=== PATIENT | male | born 1970 | race Caucasian/White ===

== ENCOUNTER 2018-06-22 14:34 | Inpatient (IN) ==
[2018-06-22] MEDS ORDERED: ACETYLCYSTEINE IV.SIG ONE ×4 (22:22→23:00)
[2018-06-22] MEDS ORDERED: DEXTROSE 5% IV.SIG ONE ×4 (22:22→23:00)
[2018-06-22] MEDS ORDERED: WATER IV.SIG ONE ×4 (22:22→23:00)
[2018-06-22] MEDS ORDERED: Bisacodyl 10 MG Supp RECTAL PRN (22:23)
--- NOTE | 2018-06-22 22:31 | P.HPCC ---
History of Present Illness Service: Critical care Primary Care Physician: UNKNOWN Chief Complaint: Tylenol overdose History of Present Illness: Patient is 48-year-old male with no significant past medical history, who attempted to kill himself by taking 25 tablets of Tylenol 500 mg, large amount of Advil and Midol(contains Tylenol). As per patient he took about 100 tablets total. He was taken to the [facility] emergency department. Further evaluation showed a Tylenol level of 110.5, salicylate level was normal his ABG showed a pH of 7.63 PCO2 13, base excess was -7. Poison control was contacted and patient was started on IV Mucomyst per protocol for Tylenol toxicity. I evaluated the patient in the ICU. He states that he feels depressed because he is going through a divorce. He had lost approximately 60 pounds due to stress in the last 2 months. While he was 15 his father killed himself and at that time he had attempted to commit suicide. He has no other medical problems - Diagnosis (1) Tylenol overdose (2) Acute respiratory alkalosis (3) Suicide attempt by acetaminophen overdose Inpatient Certification: I certify that the inpatient services were ordered in accordance with Medicare regulations governing the order. This includes certification that hospital inpatient services are reasonable and necessary and in the case of services not specified as inpatient-only under 42 CFR 419.22(n), that they are appropriately provided as inpatient services in accordance to with the 2-midnight benchmark under 43 CFR 412.3(e) Estimated Total Length of Stay (Days): 5 Plans for Post Hospital Care: Not yet determined Review of Systems All other systems reviewed negative except as stated in HPI [facility] - History History Provided By: Patient - Medical History Medical History: Medical History (Last Updated 06/22/18 @ 22:45 by Mary Pete MD) Depression Patient denies medical problems - Surgical History Surgical History: Surgical History (Last Updated 06/22/18 @ 14:43 by Nita Mack RN) Hx of tonsillectomy - Tobacco History Second Hand Smoke Exposure: Yes Tobacco Use In Past 30 Days: Yes Smoking Status: Current every day smoker Tobacco Type: E-Cigarettes - Alcohol History How Often Do You Have a Drink Containing Alcohol: 2 to 3 times a week - Substance Use History Substance History: No History of Abuse Medications and Allergies Active Medications: Active Medications Al Hydroxide/Mg Hydroxide (Milk Of [place] Liq) 30 ml PO Q12H PRN PRN Reason: Mild Constipation Albuterol (Duoneb Neb (Prn)) 1 ampul NEB Q2HR NEB PRN PRN Reason: WHEEZING Bisacodyl (Dulcolax Supp) 10 mg RECTAL DAILY PRN PRN Reason: SEVERE CONSITIPATION Chlorhexidine Gluconate (Chlorhexidine 2% Cloth) 3 pack TOPICAL DAILY@0400 B[facility]AL Stop: 06/28/18 03:59 Chlorhexidine Gluconate (Chlorhexidine 2% Cloth) 3 pack TOPICAL DAILY@0400 PRN PRN Reason: Extra cloth needed Stop: 06/28/18 03:59 Famotidine (Pepcid Pf Inj) 20 mg IV.PUSH Q12HR [facility] Acetylcysteine 15,000 mg/ (Dextrose) 275 mls @ 275 mls/hr IV.SIG ONCE ONE Stop: 06/22/18 22:23 Acetylcysteine 5,000 mg/ (Dextrose) 525 mls @ 131.25 mls/hr IV.SIG ONCE ONE Stop: 06/22/18 22:23 Acetylcysteine 10,000 mg/ (Dextrose) 1,050 mls @ 65.625 mls/hr IV.SIG ONCE ONE Stop: 06/22/18 22:23 Sodium Chloride (Ns Inj) 1,000 mls @ 84 mls/hr IV.CONT .[id number] [facility] Lactulose (Lactulose Liq) 30 ml PO DAILY PRN PRN Reason: SEVERE CONSITIPATION Senna/Docusate Sodium (Kady-Colace) 1 tab PO BID [facility] Sennosides (Senokot) 17.2 mg PO Q12H PRN PRN Reason: Moderate Constipation Sodium Chloride (Ns Flush) 2 ml IV.FLUSH BID B[facility] Sodium Chloride (Ns Flush) 2 ml IV.FLUSH PRN PRN PRN Reason: FLUSH AFTER USING IV ACCESS Allergies Allergy/AdvReac Type Severity Reaction Status Date / Time Penicillins Allergy Itching Verified 06/22/18 14:39 Home Medications Medication Instructions Recorded Confirmed Type No Known Home Medications 06/22/18 06/22/18 History Exam Vital signs: Intake & Output 06/22/18 06/22/18 06/23/18 06:59 18:59 06:59 Weight 105 kg Other: Weight On Admission 105 kg Narrative: GENERAL: 48-year-old male, lying in bed appears depressed SKIN: warm/dry. HEAD: Atraumatic. Normocephalic. EYES: Pupils equal and round. No scleral icterus. ENT: No nasal bleeding or discharge. Mucous membranes moist. NECK: Trachea midline. No JVD. CARDIOVASCULAR: Regular rate and rhythm. No murmur appreciated. RESPIRATORY: No accessory muscle use. Clear to auscultation. Breath sounds equal bilaterally. GASTROINTESTINAL: Abdomen soft, non-tender, nondistended. Hepatic and splenic margins not palpable. MUSCULOSKELETAL: No obvious deformities. No clubbing. No edema. NEUROLOGICAL: Awake and alert. No obvious cranial nerve deficits. Motor grossly within normal limits. Normal speech. PSYCHIATRIC: Depressed mood Septic Shock Reassessment Septic shock perfusion: reassessment completed Caprini VTE Risk Assessment Caprini VTE Risk Assessment: No/Low Risk (score <= 1) Caprini Risk Assessment Model: Point Value = 1 Point Value = 2 Point Value = 3 Point Value = 5 Age 41-60 Minor surgery BMI > 25 kg/m2 Swollen legs Varicose veins or History of unexplained or recurrent spontaneous Oral contraceptives or hormone replacement Sepsis (< 1 month) Serious lung disease, including pneumonia (< 1 month) Abnormal pulmonary function Acute myocardial infarction Congestive heart failure (< 1 month) History of inflammatory bowel disease Medical patient at bed rest Age 61-74 Arthroscopic surgery Major open surgery (> 45 min) Laparoscopic surgery (> 45 min) Malignancy Confined to bed (> 72 hours) Immobilizing plaster cast Central venous access Age >= 75 History of VTE Family history of VTE Factor V Leiden Prothrombin [id number] Lupus anticoagulant Anticardiolipin antibodies Elevated serum homocysteine Heparin-induced thrombocytopenia Other congenital or acquired thrombophilia Stroke (< 1 month) Elective arthroplasty Hip, pelvis, or leg fracture Acute spinal cord injury (< 1 month) Prophylaxis Regimen: Total Risk Factor Score Risk Level Prophylaxis Regimen 0-1 Low Early ambulation 2 Moderate Order ONE of the following: *Sequential Compression Device (SCD) *Heparin 5000 units SQ BID 3-4 Higher Order ONE of the following medications: *Heparin 5000 units SQ TID *Enoxaparin/Lovenox 40 mg SQ daily (WT < 150 kg, CrCl > 30 mL/min) *Enoxaparin/Lovenox 30 mg SQ daily (WT < 150 kg, CrCl > 10-29 mL/min) *Enoxaparin/Lovenox 30 mg SQ BID (WT < 150 kg, CrCl > 30 mL/min) AND/OR *Sequential Compression Device (SCD) 5 or more Highest Order ONE of the following medications: *Heparin 5000 units SQ TID (Preferred with Epidurals) *Enoxaparin/Lovenox 40 mg SQ daily (WT < 150 kg, CrCl > 30 mL/min) *Enoxaparin/Lovenox 30 mg SQ daily (WT < 150 kg, CrCl > 10-29 mL/min) *Enoxaparin/Lovenox 30 mg SQ BID (WT < 150 kg, CrCl > 30 mL/min) AND *Sequential Compression Device (SCD) Assessment and Plan - Problem List (1) Tylenol overdose Code(s): T39.1X1A - Poisoning by 4-Aminophenol derivatives, accidental ( unintentional), initial encounter Status: Acute (2) Acute respiratory alkalosis Code(s): E87.3 - Alkalosis Status: Acute (3) Suicide attempt by acetaminophen overdose Code(s): T39.1X2A - Poisoning by 4-Aminophenol derivatives, intentional self- harm, initial encounter Status: Acute - Assessment and Plan Plan: NEURO: Suicide attempt Tylenol overdose Major depression -IV N-acetylcysteine for Tylenol overdose per protocol -Repeat Tylenol, salicylate level -Poison control had been contacted -Psych consult in a.m. RESP: Acute respiratory alkalosis Minimal left basilar effusion on chest x-ray -Respiratory alkalosis most likely from anxiety -Salicylate level was normal will repeat -Also repeat ABG CV: -Normal saline IV fluids 84 mL/h GI: -N.p.o., IV famotidine -Clear liquid diet if stable -Check ammonia level : -Monitor renal function closely. ID: -No indication for antibiotics at this time HEME: -Monitor CBC, coags ENDO: -Electrolyte replacement per protocol, if needed PROPH: -Bilateral lower extremity SCDs. IV famotidine -Avoid chemical DVT prophylaxis at this time due to Tylenol toxicity LINES: -Utilize peripheral IVs, central line if needed Level 3 New admit Hospitalist consulted to assume care in a.m. Code Status: Full H&P: Quality - VTE Deep Vein Thrombosis/Pulmonary Embolism Present on Admission: No
[2018-06-22 23:08] LABS: ABG Base Excess -3.5 mmol/L (-2-2); ABG PCO2 28 mmHg (38-42); ABG PO2 129 mmHG (61-120)
[2018-06-22] MEDS: Sod Chloride 0.9% Inj 1,000 ML IV.CONT SCH (23:51)
[2018-06-22 23:55] LABS: Acetaminophen 28.3 mcg/mL (10.0-30.0)
[2018-06-22 23:58] LABS: Troponin I 0.11 ng/mL (0.02-0.05)
[2018-06-23] MEDS: Chlorhexidine Gluconate 2% 1 Pack (2 Cloths) TOPICAL SCH (04:00)
[2018-06-23] MEDS ORDERED: Chlorhexidine Gluconate 2% 1 Pack (2 Cloths) TOPICAL PRN (04:00)
[2018-06-23 04:41] LABS: Activated Partial Thrombo Time 25.5 sec (24.3-30.1); INR 1.2 Ratio; Prothrombin Time 12.3 sec (9.8-11.6)
[2018-06-23 09:29] LABS: Troponin I 0.43 ng/mL (0.02-0.05)
[2018-06-23] MEDS: Senna/Docusate Sodium 8.6/50 MG Tablet PO SCH ×2 (09:44→20:44)
[2018-06-23] MEDS: Famotidine PF Inj 20 MG/2 ML Vial IV.PUSH SCH ×2 (09:44→20:44)
[2018-06-23] MEDS: Sod Chloride 0.9% Inj 1,000 ML IV.CONT SCH ×2 (10:51→22:33)
--- NOTE | 2018-06-23 10:52 | P.PNIM ---
Subjective Interval history: The patient said that he spoke with a psychiatrist. He said he is having a lot of family problems right now. He also says that he has had left-sided chest pain for the past few months. He says his stomach feels better. Discussed with nursing. Physical Exam Vital signs: Vital Signs 06/22/18 23:00 06/23/18 00:00 06/23/18 01:00 Temperature 99.0 F Pulse Rate 70 68 69 Respiratory Rate 21 21 23 Blood Pressure 153/82 H 159/97 H 165/86 H Pulse Oximetry 99 98 99 06/23/18 02:00 06/23/18 03:00 06/23/18 04:00 Temperature Pulse Rate 62 65 59 L Respiratory Rate 20 21 19 Blood Pressure 165/79 H 180/102 H 177/94 H Pulse Oximetry 99 99 99 06/23/18 05:00 06/23/18 06:00 06/23/18 07:00 Temperature 99.2 F Pulse Rate 67 57 L 90 Respiratory Rate 20 27 H 23 Blood Pressure 123/68 159/77 H 154/75 H Pulse Oximetry 98 96 97 06/23/18 08:00 06/23/18 09:00 06/23/18 10:00 Temperature 98.0 F Pulse Rate 77 75 75 Respiratory Rate 27 H 23 Blood Pressure 177/92 H 167/90 H Pulse Oximetry 99 99 Intake & Output 06/22/18 06/23/18 06/23/18 18:59 06:59 18:59 Output Total 350 / 350 Balance -350 / -350 Weight 105.5 kg Output: Urine 350 / 350 Other: # Bowel Movements 0 Weight On Admission 105 kg Narrative: GENERAL: No distress. SKIN: warm/dry. HEAD: Atraumatic. Normocephalic. EYES: Pupils equal and round. No scleral icterus. ENT: No nasal bleeding or discharge. Mucous membranes moist. NECK: Trachea midline. No JVD. CARDIOVASCULAR: Regular rate and rhythm. No murmur appreciated. RESPIRATORY: No accessory muscle use. Clear to auscultation. Breath sounds equal bilaterally. GASTROINTESTINAL: Abdomen soft, non-tender, nondistended. Hepatic and splenic margins not palpable. MUSCULOSKELETAL: No obvious deformities. No clubbing. No edema. NEUROLOGICAL: Awake and alert. No obvious cranial nerve deficits. Motor grossly within normal limits. Normal speech. PSYCHIATRIC: Flat affect. Results - Labs Laboratory Results - last 24 hr 06/22/18 06/22/18 06/22/18 22:10 22:50 23:20 PT INR APTT Puncture Site Right radial Patient Temperature 98.6 O2 Saturation 96 ABG pH 7.46 H ABG pCO2 28 L ABG pO2 129 H ABG HCO3 20 L ABG O2 Content 22.1 H ABG Base Excess -3.5 L ABG Methemoglobin 1.4 Hernandez Test Present Hemoglobin 16.3 H Carboxyhemoglobin 1.5 O2 Delivery Device Room air Critical Value No Lactic Acid Ammonia Less than 10 L Troponin I Nasal Screen MRSA (PCR) Not detected Salicylates Acetaminophen 06/22/18 06/22/18 06/23/18 23:20 23:20 03:58 PT 12.3 H INR 1.2 APTT 25.5 Puncture Site Patient Temperature O2 Saturation ABG pH ABG pCO2 ABG pO2 ABG HCO3 ABG O2 Content ABG Base Excess ABG Methemoglobin Hernandez Test Hemoglobin Carboxyhemoglobin O2 Delivery Device Critical Value Lactic Acid Ammonia Troponin I 0.11 H Nasal Screen MRSA (PCR) Salicylates Less than 1.7 L Acetaminophen 28.3 06/23/18 06/23/18 06/23/18 03:58 08:44 08:44 PT INR APTT Puncture Site Patient Temperature O2 Saturation ABG pH ABG pCO2 ABG pO2 ABG HCO3 ABG O2 Content ABG Base Excess ABG Methemoglobin Hernandez Test Hemoglobin Carboxyhemoglobin O2 Delivery Device Critical Value Lactic Acid 0.9 Ammonia Troponin I 0.43 H Cancelled Nasal Screen MRSA (PCR) Salicylates Acetaminophen Less than 2.0 L Assessment and Plan - Plan Suicide attempt/Tylenol overdose/Major depression -IV N-acetylcysteine for Tylenol overdose per protocol. -Poison control had been contacted and following. -Psych will take pt once medically stable. NSTEMI Trop elevated. Has left sided chest pain, chronic. EKG without acute ischemic changes. -telemetry. -trend trops. -cardiology consult if trops continues to increase. -repeat EKG. -check lipid profile, A1c. -ASA 325 mg daily. Acute respiratory alkalosis Minimal left basilar effusion on chest x-ray. Respiratory alkalosis most likely from anxiety. -oxygen as needed. PROPH: Bilateral lower extremity SCDs Discharge Planning: Await further cardiac eval
[2018-06-23] MEDS ORDERED: Morphine Sulfate Inj 2 MG/ML Vial IV.PUSH PRN (10:55)
[2018-06-23] MEDS: Aspirin 325 MG Tablet PO SCH (10:56)
--- NOTE | 2018-06-23 14:08 | P.CONPSY ---
Provisional Diagnosis Admission Date: June 22, 2018 22:00 [place] I.: Adjustment disorder with depressed mood vs MDD History of Present Illness Service: CC Primary Care Provider: UNKNOWN Chief Complaint: Tylenol overdose History of Present Illness: The patient is 48-year-old man, domiciled with in [place], father of 3 kids, employed, without no previous psychiatric history, no previous psychiatric hospitalization, but a suicidal attempt at the age of [age] years old by overdose, no significant past medical history, who attempted to kill himself by taking 25 tablets of Tylenol 500 mg, large amount of Advil and Midol(contains Tylenol). As per patient he took about 100 tablets total. He was taken to the [place] emergency department. Further evaluation showed a Tylenol level of 110.5, salicylate level was normal his ABG showed a pH of 7.63 PCO2 13, base excess was -7. Poison control was contacted and patient was started on IV Mucomyst per protocol for Tylenol toxicity. Chart was reviewed. The patient was in the ICU. Patient is calm, cooperative, tearful. The patient explains that he has been experiencing multiple psychosocial stressors, but the most important is problem with his family. Patient reports that in the last weeks he is 21-year-old daughter and 18-year-old daughter have left the house. He has been having multiple arguments with , in the last days he has realized my is not honest with me yesterday she apparently mentioned that she is going to divorce him. The patient felt very distressed by these, depressed, and try to commit suicide by overdose. At this right moment the patient says that he does not know exactly what to think, at some point he was disappointed because he did not , but at the same time he has been thinking that if he is alive is because he is meant to continue his life and fight with his problems. At this moment the patient endorses anhedonia, hopelessness, helplessness, worthlessness, guiltiness, suicidal ideation, but no plan. The patient was able to contract for safety in the hospital. Very tearful, but logical, coherent and relevant. No loosening of associations, no ideas of reference, no paranoia present. He denies homicidal ideation, he denies visual and auditory hallucinations. PPHx: Patient has a suicidal attempt at the age of [age] years old after his father committed suicide, but no hospitalizations, no diagnosis, never been on medication PMHx: No significant medical history Substance Hx: The patient reports occasional use of alcohol Family Hx: His father committed suicide, he had diagnosis of PTSD Social Hx: Patient was born and raised in [place], domiciled with in [place], father of 3 kids, employed, [employer] - History History Provided By: Patient - Medical History Medical History: Medical History (Last Updated 06/22/18 @ 22:45 by Mary Pete MD) Depression Patient denies medical problems - Surgical History Surgical History: Surgical History (Last Updated 06/22/18 @ 14:43 by Nita Mack RN) Hx of tonsillectomy - Tobacco History Second Hand Smoke Exposure: Yes Tobacco Use In Past 30 Days: Yes Smoking Status: Current every day smoker Tobacco Type: E-Cigarettes - Alcohol History How Often Do You Have a Drink Containing Alcohol: 2 to 3 times a week - Substance Use History Substance History: No History of Abuse Medications and Allergies Active Medications: Active Medications Al Hydroxide/Mg Hydroxide (Milk Of [place]) 30 ml PO Q12H PRN PRN Reason: Mild Constipation Albuterol (Duoneb Neb (Prn)) 1 ampul NEB Q2HR NEB PRN PRN Reason: WHEEZING Aspirin (Aspirin) 325 mg PO DAILY [facility] Last Admin: 06/23/18 10:56 Dose: 325 mg Bisacodyl (Dulcolax Supp) 10 mg RECTAL DAILY PRN PRN Reason: SEVERE CONSITIPATION Chlorhexidine Gluconate (Chlorhexidine 2% Cloth) 3 pack TOPICAL DAILY@0400 [facility] Stop: 06/28/18 03:59 Last Admin: 06/23/18 04:00 Dose: 3 pack Chlorhexidine Gluconate (Chlorhexidine 2% Cloth) 3 pack TOPICAL DAILY@0400 PRN PRN Reason: Extra cloth needed Stop: 06/28/18 03:59 Famotidine (Pepcid Pf Inj) 20 mg IV.PUSH Q12HR [facility] Last Admin: 06/23/18 09:44 Dose: 20 mg Acetylcysteine 10,000 mg/ (Dextrose) 1,050 mls @ 65.625 mls/hr IV.SIG ONCE ONE Stop: 06/23/18 14:59 Last Admin: 06/22/18 23:51 Dose: 65.63 mls/hr Sodium Chloride (Ns Inj) 1,000 mls @ 84 mls/hr IV.CONT .[id number] [facility] Last Admin: 06/23/18 10:51 Dose: 84 mls/hr Lactulose (Lactulose Liq) 30 ml PO DAILY PRN PRN Reason: SEVERE CONSITIPATION Morphine Sulfate (Morphine Inj) 2 mg IV.PUSH Q3H PRN PRN Reason: CHEST PAIN Senna/Docusate Sodium (Kady-Colace) 1 tab PO BID [facility] Last Admin: 06/23/18 09:44 Dose: 1 tab Sennosides (Senokot) 17.2 mg PO Q12H PRN PRN Reason: Moderate Constipation Sodium Chloride (Ns Flush) 2 ml IV.FLUSH BID [facility] Last Admin: 06/23/18 09:44 Dose: 2 ml Sodium Chloride (Ns Flush) 2 ml IV.FLUSH PRN PRN PRN Reason: FLUSH AFTER USING IV ACCESS Allergies Allergy/AdvReac Type Severity Reaction Status Date / Time Penicillins Allergy Itching Verified 06/22/18 14:39 Home Medications Medication Instructions Recorded Confirmed Type No Known Home Medications 06/22/18 06/22/18 History Exam Vital signs: Vital Signs 06/22/18 23:00 06/23/18 00:00 06/23/18 01:00 Temperature 99.0 F Pulse Rate 70 68 69 Respiratory Rate 21 21 23 Blood Pressure 153/82 H 159/97 H 165/86 H Pulse Oximetry 99 98 99 06/23/18 02:00 06/23/18 03:00 06/23/18 04:00 Temperature Pulse Rate 62 65 59 L Respiratory Rate 20 21 19 Blood Pressure 165/79 H 180/102 H 177/94 H Pulse Oximetry 99 99 99 06/23/18 05:00 06/23/18 06:00 06/23/18 07:00 Temperature 99.2 F Pulse Rate 67 57 L 90 Respiratory Rate 20 27 H 23 Blood Pressure 123/68 159/77 H 154/75 H Pulse Oximetry 98 96 97 06/23/18 08:00 06/23/18 09:00 06/23/18 10:00 Temperature 98.0 F Pulse Rate 77 75 70 Respiratory Rate 27 H 23 19 Blood Pressure 177/92 H 167/90 H 163/91 H Pulse Oximetry 99 99 98 06/23/18 11:00 06/23/18 12:00 Temperature 98.4 F Pulse Rate 92 H 98 H Respiratory Rate 24 24 Blood Pressure 153/83 H 142/69 H Pulse Oximetry 99 97 Intake & Output 06/22/18 06/23/18 06/23/18 18:59 06:59 18:59 Intake Total 1000 / 1000 Output Total 350 / 350 Balance -350 / -350 1000 / 1000 Weight 105.5 kg Intake: IV 1000 / 1000 NS Inj 1,000 ML @ 84 mls/hr IV. 1000 / 1000 CONT .[id number] [facility] Rx#:[id number] Output: Urine 350 / 350 Other: # Bowel Movements 0 Weight On Admission 105 kg Narrative: No psychomotor agitation or retardation, no EPS, no withdrawal symptoms, no tremors, no stiffness, no catatonia - Constitutional mild distress - Routine HEENT Exam Head: Present: normocephalic, atraumatic Eye: Present: EOMI, PERRL ENT: Present: mucous membranes moist Mental Status Examination Appearance: Appropriate Consciousness: Alert Orientation: x4 Motor Activity: Normal gait Speech: Unremarkable Language: Adequate Fund of Knowledge: Adequate Attention and Concentration: Adequate Memory: Unremarkable Mood: Sad Affect: Sad Thought Process & Associations: Intact Thought Content: Appropriate Hallucination Type: None Delusion Type: None Suicidal Ideation: Yes Suicidal Plan: Yes Suicidal Intention: No Homicidal Ideation: No Homicidal Plan: No Homicidal Intention: No Insight: Poor Judgment: Poor Assessment and Plan - Assessment (1) Acute adjustment disorder Code(s): F43.20 - Adjustment disorder, unspecified Status: Acute - Plan Plan: On psychiatric evaluation today the patient presents depressed, very tearful, reports that he has been fighting with depression in the last days after his notified him that she is planning to divorce. Patient has overdosed with Tylenol in order to commit suicide. He has a psychiatric history of a suicidal attempt at the age of [age] years old, his father committed suicide and had PTSD, at this moment the patient has an elevated risk of danger to himself. He has contracted for safety in the hospital. Remain in one-to-one in the medical floor. No psychotropics onto the patient is medically clear. Transfer to psychiatry once medically clear. Support, motivational psych education provided. Justification for Continued Inpatient Stay: No admission is indicated
--- NOTE | 2018-06-23 14:17 | P.CONCA ---
History of Present Illness Service: cardiology Consult date: 06/23/18 Requesting Physician: Yang Alfred Reason for Consult: elevated troponin, chest pain Primary Care Provider: UNKNOWN Chief Complaint: Tylenol overdose History of Present Illness: This is a 48 yo gentleman with untreated HTN who presented after attempted suicide by overdose. Took Tylenol, Advil and Midol. Has been treated for such and monitored and seems to be stable. He was noted on POC labs to have mild elevation in troponin 0.11, 0.43 and noted mild left sided chest pain this AM briefly, nonradiating, nonpleuritic, nonpositional, no associated dyspnea, palpitation, lightheadedness, diaphoresis. Apparently he is very active and has been exercising for months for greater than 1 hour multiple times per week with significant exertion and has lost over 60lbs intentionally and with family stress. No cardiopulmonary symptoms with exertion. He does note having a long history of similar chest pain, intermittently for a few years now but hasn't had it in a while until this AM. He is not currently treating his HTN as an outpatient. Was on Benicar but stopped as his "physician went out of town and didn't refill his prescription." Currently feels fine with no complaints. ECG today is NSR with anterior TWI that are new from ECG 06/22/2018. Review of Systems All other systems reviewed negative except as stated in HPI PMFSH - History History Provided By: Patient - Medical History Medical History: Medical History (Last Updated 06/22/18 @ 22:45 by Mary Pete MD) Depression Patient denies medical problems - Surgical History Surgical History: Surgical History (Last Updated 06/22/18 @ 14:43 by Nita Mack RN) Hx of tonsillectomy - Tobacco History Second Hand Smoke Exposure: Yes Tobacco Use In Past 30 Days: Yes Smoking Status: Current every day smoker Tobacco Type: E-Cigarettes - Alcohol History How Often Do You Have a Drink Containing Alcohol: 2 to 3 times a week - Substance Use History Substance History: No History of Abuse Medications and Allergies Active Medications: Active Medications Al Hydroxide/Mg Hydroxide (Milk Of Magnalexandria Liq) 30 ml PO Q12H PRN PRN Reason: Mild Constipation Albuterol (Duoneb Neb (Prn)) 1 ampul NEB Q2HR NEB PRN PRN Reason: WHEEZING Amlodipine Besylate (Norvasc) 5 mg PO DAILY COUNT INCLUDES THE [facility] Aspirin (Aspirin) 325 mg PO DAILY COUNT INCLUDES THE [facility] Last Admin: 06/23/18 10:56 Dose: 325 mg Bisacodyl (Dulcolax Supp) 10 mg RECTAL DAILY PRN PRN Reason: SEVERE CONSITIPATION Chlorhexidine Gluconate (Chlorhexidine 2% Cloth) 3 pack TOPICAL DAILY@0400 COUNT INCLUDES THE [facility] Stop: 06/28/18 03:59 Last Admin: 06/23/18 04:00 Dose: 3 pack Chlorhexidine Gluconate (Chlorhexidine 2% Cloth) 3 pack TOPICAL DAILY@0400 PRN PRN Reason: Extra cloth needed Stop: 06/28/18 03:59 Famotidine (Pepcid Pf Inj) 20 mg IV.PUSH Q12HR COUNT INCLUDES THE [facility] Last Admin: 06/23/18 09:44 Dose: 20 mg Acetylcysteine 10,000 mg/ (Dextrose) 1,050 mls @ 65.625 mls/hr IV.SIG ONCE ONE Stop: 06/23/18 14:59 Last Admin: 06/22/18 23:51 Dose: 65.63 mls/hr Sodium Chloride (Ns Inj) 1,000 mls @ 84 mls/hr IV.CONT .[id number] COUNT INCLUDES THE [facility] Last Admin: 06/23/18 10:51 Dose: 84 mls/hr Lactulose (Lactulose Liq) 30 ml PO DAILY PRN PRN Reason: SEVERE CONSITIPATION Morphine Sulfate (Morphine Inj) 2 mg IV.PUSH Q3H PRN PRN Reason: CHEST PAIN Senna/Docusate Sodium (Kady-Colace) 1 tab PO BID COUNT INCLUDES THE [facility] Last Admin: 06/23/18 09:44 Dose: 1 tab Sennosides (Senokot) 17.2 mg PO Q12H PRN PRN Reason: Moderate Constipation Sodium Chloride (Ns Flush) 2 ml IV.FLUSH BID COUNT INCLUDES THE [facility] Last Admin: 06/23/18 09:44 Dose: 2 ml Sodium Chloride (Ns Flush) 2 ml IV.FLUSH PRN PRN PRN Reason: FLUSH AFTER USING IV ACCESS Allergies Allergy/AdvReac Type Severity Reaction Status Date / Time Penicillins Allergy Itching Verified 06/22/18 14:39 Home Medications Medication Instructions Recorded Confirmed Type No Known Home Medications 06/22/18 06/22/18 History Exam Vital signs: Vital Signs 06/22/18 23:00 06/23/18 00:00 06/23/18 01:00 Temperature 99.0 F Pulse Rate 70 68 69 Respiratory Rate 21 21 23 Blood Pressure 153/82 H 159/97 H 165/86 H Pulse Oximetry 99 98 99 06/23/18 02:00 06/23/18 03:00 06/23/18 04:00 Temperature Pulse Rate 62 65 59 L Respiratory Rate 20 21 19 Blood Pressure 165/79 H 180/102 H 177/94 H Pulse Oximetry 99 99 99 06/23/18 05:00 06/23/18 06:00 06/23/18 07:00 Temperature 99.2 F Pulse Rate 67 57 L 90 Respiratory Rate 20 27 H 23 Blood Pressure 123/68 159/77 H 154/75 H Pulse Oximetry 98 96 97 06/23/18 08:00 06/23/18 09:00 06/23/18 10:00 Temperature 98.0 F Pulse Rate 77 75 70 Respiratory Rate 27 H 23 19 Blood Pressure 177/92 H 167/90 H 163/91 H Pulse Oximetry 99 99 98 06/23/18 11:00 06/23/18 12:00 Temperature 98.4 F Pulse Rate 92 H 98 H Respiratory Rate 24 24 Blood Pressure 153/83 H 142/69 H Pulse Oximetry 99 97 Intake & Output 06/22/18 06/23/18 06/23/18 18:59 06:59 18:59 Intake Total 1000 / 1000 Output Total 350 / 350 Balance -350 / -350 1000 / 1000 Weight 105.5 kg Intake: IV 1000 / 1000 NS Inj 1,000 ML @ 84 mls/hr IV. 1000 / 1000 CONT .[id number] COUNT INCLUDES THE [facility] Rx#:[id number] Output: Urine 350 / 350 Other: # Bowel Movements 0 Weight On Admission 105 kg Narrative: GENERAL: comfortable appearing SKIN: Warm and dry. HEAD: Atraumatic. Normocephalic. EYES: Pupils equal and round. No scleral icterus. No injection or drainage. ENT: No nasal bleeding or discharge. Mucous membranes pink and moist. NECK: Trachea midline. No JVD. CARDIOVASCULAR: Regular rate and rhythm. RESPIRATORY: No accessory muscle use. Clear to auscultation. Breath sounds equal bilaterally. GASTROINTESTINAL: Abdomen soft, non-tender, nondistended. Hepatic and splenic margins not palpable. MUSCULOSKELETAL: Extremities without clubbing, cyanosis, or edema. No obvious deformities. NEUROLOGICAL: Awake and alert. No obvious cranial nerve deficits. Motor grossly within normal limits. Normal speech. PSYCHIATRIC: Appropriate mood and affect; insight and judgment normal. Results Cardiac Enzymes 06/22/18 06/23/18 06/23/18 Range/Units 23:20 08:44 08:44 Troponin I 0.11 H 0.43 H Cancelled (0.02-0.05) ng/mL Coagulation 06/23/18 Range/Units 03:58 PT 12.3 H (9.8-11.6) sec APTT 25.5 (24.3-30.1) sec Intake and Output 06/22/18 06/23/18 06/23/18 22:59 06:59 14:59 Intake Total 1000 / 1000 Output Total 350 / 350 Balance -350 / -350 1000 / 1000 Intake: IV 1000 / 1000 NS Inj 1,000 ML @ 84 mls/hr IV. 1000 / 1000 CONT .[id number] [facility] Rx#:[id number] Output: Urine 350 / 350 Other: # Bowel Movements 0 Weight 105 kg 105.5 kg Weight On Admission 105 kg Assessment and Plan - Plan Assessment: Here following suicide attempt with overdose on NSAIDs. Developed brief atypical chest pain this AM with mild elevation in troponin and anterior TWIs on ECG today consistent with possible NSTEMI type I vs type II. Suicide attempt Salicylate overdose Depression Atypical Chest pain, resolved NSTEMI type I vs type II demand ischemia HTN, uncontrolled Possible DM Obesity Recommendations: -Lexiscan stress test in AM, NPO after MN except meds -ASA 81 mg daily -Start Amlodipine 5mg daily -check lipid profile, HgA1c, and CMP -hold on heparin gtt for now Will continue to follow with you.
[2018-06-23] MEDS: amLODIPine 5 MG Tablet PO SCH (14:18)
[2018-06-23 16:31] LABS: Chol/HDL Ratio 4.13 Ratio; HDL Cholesterol 36.5 mg/dL (40.0-60.0); Troponin I 0.39 ng/mL (0.02-0.05)
[2018-06-23 16:59] LABS: Hemoglobin A1c 5.7 % (4.3-6.0)
[2018-06-23 17:45] LABS: Activated Partial Thrombo Time 27.2 sec (23.4-31.7); INR 1.2 Ratio; Prothrombin Time 12.5 sec (9.8-11.6)
--- NOTE | 2018-06-23 17:46 | ECG ---
Date Performed: 06/23/2018 Time Performed: 10:59:47 PTAGE: 48 years EKG: Sinus rhythm MODERATE T-WAVE ABNORMALITY, CONSIDER ANTERIOR ISCHEMIA When compared to previous tracing, anterior ST changes are more Prominent, consider ischemia. ABNORMAL ECG PREVIOUS TRACING : 06/22/2018 17.31.24 DOCTOR: Wood Short Interpretating Date/Time 06/23/2018 17:44:31
[2018-06-23 18:50] LABS: Albumin 3.6 g/dL (3.4-5.0); Anion Gap 13 meq/L (5-15); Aspartate Aminotransferase 16 U/L (15-37); Blood Urea Nitrogen 8 mg/dL (7-18); Calcium 8.5 mg/dL (8.5-10.1); Carbon Dioxide 18.8 meq/L (21.0-32.0); Chloride 110 meq/L (98-107); Glomerular Filtration Rate Greater Than 89 mL/min (>89); Glucose,Random 103 mg/dL (74-106); Potassium 3.4 meq/L (3.5-5.1); Sodium 142 meq/L (136-145)
[2018-06-23 18:51] LABS: Alanine Aminotransferase 29 U/L (12-78)
[2018-06-23 18:53] LABS: Alkaline Phosphatase 46 U/L (45-117); Total Protein 6.5 g/dL (6.4-8.2)
[2018-06-24] MEDS: Chlorhexidine Gluconate 2% 1 Pack (2 Cloths) TOPICAL SCH (04:47)
[2018-06-24 05:57] LABS: Hematocrit 42.3 % (39.0-51.0); Hemoglobin 14.3 gm/dL (13.0-17.0); Mean Corpuscular HGB Conc 33.9 % (32.0-36.0); Mean Corpuscular Hemoglobin 30.5 pg (27.0-34.0); Mean Platelet Volume 9.2 fL (7.0-11.0); Platelet Count 169 th/mm3 (150-450); Red Cell Distribution Width 13.4 % (11.6-17.2)
[2018-06-24 06:11] LABS: Anion Gap 7 meq/L (5-15); Blood Urea Nitrogen 9 mg/dL (7-18); Calcium 8.4 mg/dL (8.5-10.1); Chloride 109 meq/L (98-107); Glomerular Filtration Rate Greater Than 89 mL/min (>89); Glucose,Random 98 mg/dL (74-106); Magnesium 2.1 mg/dL (1.5-2.5); Potassium 4.2 meq/L (3.5-5.1); Sodium 144 meq/L (136-145)
[2018-06-24 06:43] LABS: Phosphorus 2.7 mg/dL (2.5-4.9)
--- NOTE | 2018-06-24 08:15 | P.PNCA ---
Subjective Interval history: reports intermittent "/" substernal chest pain overnight and currently feels it at time of exam. No SOB or palpitations. He is currently npo for stress test this morning. Medications and Allergies Allergies Allergy/AdvReac Type Severity Reaction Status Date / Time Penicillins Allergy Itching Verified 06/22/18 14:39 Home Medications Medication Instructions Recorded Confirmed Type No Known Home Medications 06/22/18 06/22/18 History Active Medications: Active Medications Al Hydroxide/Mg Hydroxide (Milk Of Magnesia Liq) 30 ml PO Q12H PRN PRN Reason: Mild Constipation Albuterol (Duoneb Neb (Prn)) 1 ampul NEB Q2HR NEB PRN PRN Reason: WHEEZING Amlodipine Besylate (Norvasc) 5 mg PO DAILY COUNT INCLUDES THE [facility] Last Admin: 06/23/18 14:18 Dose: 5 mg Aspirin (Aspirin) 325 mg PO DAILY COUNT INCLUDES THE [facility] Last Admin: 06/23/18 10:56 Dose: 325 mg Bisacodyl (Dulcolax Supp) 10 mg RECTAL DAILY PRN PRN Reason: SEVERE CONSITIPATION Chlorhexidine Gluconate (Chlorhexidine 2% Cloth) 3 pack TOPICAL DAILY@0400 COUNT INCLUDES THE [facility] Stop: 06/28/18 03:59 Last Admin: 06/24/18 04:47 Dose: 3 pack Chlorhexidine Gluconate (Chlorhexidine 2% Cloth) 3 pack TOPICAL DAILY@0400 PRN PRN Reason: Extra cloth needed Stop: 06/28/18 03:59 Famotidine (Pepcid Pf Inj) 20 mg IV.PUSH Q12HR COUNT INCLUDES THE [facility] Last Admin: 06/23/18 20:44 Dose: 20 mg Sodium Chloride (Ns Inj) 1,000 mls @ 84 mls/hr IV.CONT .[id number] COUNT INCLUDES THE [facility] Last Admin: 06/23/18 22:33 Dose: 84 mls/hr Lactulose (Lactulose Liq) 30 ml PO DAILY PRN PRN Reason: SEVERE CONSITIPATION Morphine Sulfate (Morphine Inj) 2 mg IV.PUSH Q3H PRN PRN Reason: CHEST PAIN Senna/Docusate Sodium (Kady-Colace) 1 tab PO BID COUNT INCLUDES THE [facility] Last Admin: 06/23/18 20:44 Dose: 1 tab Sennosides (Senokot) 17.2 mg PO Q12H PRN PRN Reason: Moderate Constipation Sodium Chloride (Ns Flush) 2 ml IV.FLUSH BID COUNT INCLUDES THE [facility] Last Admin: 06/23/18 20:44 Dose: 2 ml Sodium Chloride (Ns Flush) 2 ml IV.FLUSH PRN PRN PRN Reason: FLUSH AFTER USING IV ACCESS Physical Exam Vital signs: Vital Signs 06/23/18 09:00 06/23/18 10:00 06/23/18 11:00 Temperature Pulse Rate 75 70 92 H Respiratory Rate 23 19 24 Blood Pressure 167/90 H 163/91 H 153/83 H Pulse Oximetry 99 98 99 06/23/18 12:00 06/23/18 14:00 06/23/18 16:00 Temperature 98.4 F 98.4 F Pulse Rate 98 H 81 64 Respiratory Rate 24 16 Blood Pressure 142/69 H 133/71 Pulse Oximetry 97 95 06/23/18 18:00 06/23/18 20:00 06/23/18 22:00 Temperature 98.6 F Pulse Rate 82 67 65 Respiratory Rate 18 Blood Pressure 140/83 Pulse Oximetry 98 06/24/18 00:00 06/24/18 02:00 06/24/18 04:00 Temperature 98.4 F 98.6 F Pulse Rate 57 L 71 61 Respiratory Rate 25 H 17 Blood Pressure 123/68 138/78 Pulse Oximetry 97 97 06/24/18 06:00 Temperature Pulse Rate 67 Respiratory Rate Blood Pressure Pulse Oximetry Intake & Output 06/23/18 06/24/18 06/24/18 18:59 06:59 18:59 Intake Total 2950 / 2950 1450 / 1450 Output Total 500 / 500 825 / 825 Balance 2450 / 2450 625 / 625 Weight 109 kg Intake: IV 2050 / 2050 1000 / 1000 NS Inj 1,000 ML @ 84 mls/hr IV. 1000 / 1000 1000 / 1000 CONT .[id number] COUNT INCLUDES THE [facility] Rx#:[id number] Acetadote Inj 10,000 MG In D5W 1050 / 1050 Inj 1,000 ML @ 65.625 mls/hr IV .SIG ONCE ONE Rx#:[id number] Oral 900 / 900 450 / 450 Output: Urine 500 / 500 825 / 825 Other: # Voids 1 2 # Bowel Movements 0 Narrative: GENERAL: comfortable appearing SKIN: Warm and dry. HEAD: Atraumatic. Normocephalic. EYES: Pupils equal and round. No scleral icterus. No injection or drainage. ENT: No nasal bleeding or discharge. Mucous membranes pink and moist. NECK: Trachea midline. No JVD. CARDIOVASCULAR: Regular rate and rhythm. RESPIRATORY: No accessory muscle use. Clear to auscultation. Breath sounds equal bilaterally. GASTROINTESTINAL: Abdomen soft, non-tender, nondistended. Hepatic and splenic margins not palpable. MUSCULOSKELETAL: Extremities without clubbing, cyanosis, or edema. No obvious deformities. NEUROLOGICAL: Awake and alert. No obvious cranial nerve deficits. Motor grossly within normal limits. Normal speech. PSYCHIATRIC: Appropriate mood and affect; insight and judgment normal. Results 06/24/18 03:47 06/24/18 03:47 Cardiac Enzymes 06/22/18 06/23/18 06/23/18 Range/Units 23:20 08:44 08:44 AST (15-37) U/L Troponin I 0.11 H 0.43 H Cancelled (0.02-0.05) ng/mL 06/23/18 06/23/18 Range/Units 10:49 10:49 AST 16 (15-37) U/L Troponin I 0.39 H (0.02-0.05) ng/mL Coagulation 06/23/18 06/23/18 Range/Units 03:58 17:00 PT 12.3 H 12.5 H (9.8-11.6) sec APTT 25.5 27.2 (24.3-30.1) sec Lipids 06/23/18 Range/Units 10:49 Triglycerides 205 H (42-150) mg/dL Cholesterol 151 (120-200) mg/dL HDL Cholesterol 36.5 L (40.0-60.0) mg/dL Cholesterol/HDL Ratio 4.13 Ratio CBC 06/24/18 Range/Units 03:47 WBC 6.0 (4.0-11.0) th/mm3 RBC 4.70 (4.50-5.90) mil/mm3 Hgb 14.3 (13.0-17.0) gm/dL Hct 42.3 (39.0-51.0) % Plt Count 169 (150-450) th/mm3 Comprehensive Metabolic Panel 06/23/18 06/24/18 Range/Units 10:49 03:47 Sodium 142 144 (136-145) meq/L Potassium 3.4 L 4.2 D (3.5-5.1) meq/L Chloride 110 H 109 H (98-107) meq/L Carbon Dioxide 18.8 L 28.0 D (21.0-32.0) meq/L BUN 8 9 (7-18) mg/dL Creatinine 0.85 0.81 (0.60-1.30) mg/dL Calcium 8.5 8.4 L (8.5-10.1) mg/dL AST 16 (15-37) U/L ALT 29 (12-78) U/L Alkaline Phosphatase 46 (45-117) U/L Total Protein 6.5 D (6.4-8.2) g/dL Albumin 3.6 D (3.4-5.0) g/dL Intake and Output 06/23/18 06/24/18 06/24/18 22:59 06:59 14:59 Intake Total 2950 / 2950 450 / 450 Output Total 500 / 500 825 / 825 Balance 2450 / 2450 -375 / -375 Intake: IV 2049 / 0 NS Inj 1,000 ML @ 84 mls/hr IV. 1000 / 1000 CONT .[id number] [facility] Rx#:[id number] Acetadote Inj 10,000 MG In D5W 1050 / 1050 Inj 1,000 ML @ 65.625 mls/hr IV .SIG ONCE ONE Rx#:[id number] Oral 900 / 900 450 / 450 Output: Urine 500 / 500 825 / 825 Other: # Voids 1 2 # Bowel Movements 0 Weight 109 kg Assessment and Plan - Plan Assessment: Here following suicide attempt with overdose on NSAIDs. Developed brief atypical chest pain this AM with mild elevation in troponin and anterior TWIs on ECG today consistent with possible NSTEMI type I vs type II. Suicide attempt Salicylate overdose Depression Atypical Chest pain, resolved NSTEMI type I vs type II demand ischemia HTN, uncontrolled Possible DM Obesity Recommendations: -Lexiscan stress test planned for this morning, currently npo - cont ASA 81 mg daily - improved BP with addition of amlodipine 5mg - mild hypertriglyceridemia, TG= 205, LDL=74 -hold on heparin gtt for now - Attending Attestation patient seen and examined. agree with above.
[2018-06-24] MEDS: Senna/Docusate Sodium 8.6/50 MG Tablet PO SCH (10:43)
[2018-06-24] MEDS: amLODIPine 5 MG Tablet PO SCH (10:43)
[2018-06-24] MEDS: Aspirin 325 MG Tablet PO SCH (10:43)
[2018-06-24] MEDS: Famotidine PF Inj 20 MG/2 ML Vial IV.PUSH SCH (10:43)
[2018-06-24] MEDS: Sod Chloride 0.9% Inj 1,000 ML IV.CONT SCH (10:44)
[2018-06-24] MEDS ORDERED: Regadenoson Inj 0.4 MG/5 ML Syringe IV.PUSH ONE (13:13)
--- NOTE | 2018-06-24 14:50 | P.PNIM ---
Subjective Interval history: The patient was waiting to go for a stress test. He said his chest pain has been present for months. He wants to leave the hospital soon but is willing to go to psychiatry. Discussed with nursing. Physical Exam Vital signs: Vital Signs 06/23/18 16:00 06/23/18 18:00 06/23/18 20:00 Temperature 98.4 F 98.6 F Pulse Rate 64 82 67 Respiratory Rate 16 18 Blood Pressure 133/71 140/83 Pulse Oximetry 95 98 06/23/18 22:00 06/24/18 00:00 06/24/18 02:00 Temperature 98.4 F Pulse Rate 65 57 L 71 Respiratory Rate 25 H Blood Pressure 123/68 Pulse Oximetry 97 06/24/18 04:00 06/24/18 06:00 06/24/18 08:00 Temperature 98.6 F Pulse Rate 61 67 67 Respiratory Rate 17 Blood Pressure 138/78 Pulse Oximetry 97 06/24/18 10:00 06/24/18 12:00 Temperature Pulse Rate 61 60 Respiratory Rate Blood Pressure Pulse Oximetry Intake & Output 06/23/18 06/24/18 06/24/18 18:59 06:59 18:59 Intake Total 2950 / 2950 1450 / 1450 1000 / 1000 Output Total 500 / 500 825 / 825 Balance 2450 / 2450 625 / 625 1000 / 1000 Weight 109 kg Intake: IV 2050 / 2050 1000 / 1000 1000 / 1000 NS Inj 1,000 ML @ 84 mls/hr IV. 1000 / 1000 1000 / 1000 1000 / 1000 CONT .[id number] [facility] Rx#:[id number] Acetadote Inj 10,000 MG In D5W 1050 / 1050 Inj 1,000 ML @ 65.625 mls/hr IV .SIG ONCE ONE Rx#:[id number] Oral 900 / 900 450 / 450 Output: Urine 500 / 500 825 / 825 Other: # Voids 1 2 # Bowel Movements 0 Narrative: GENERAL: comfortable appearing SKIN: Warm and dry. HEAD: Atraumatic. Normocephalic. EYES: Pupils equal and round. No scleral icterus. No injection or drainage. ENT: No nasal bleeding or discharge. Mucous membranes pink and moist. NECK: Trachea midline. No JVD. CARDIOVASCULAR: Regular rate and rhythm. RESPIRATORY: No accessory muscle use. Clear to auscultation. Breath sounds equal bilaterally. GASTROINTESTINAL: Abdomen soft, non-tender, nondistended. Hepatic and splenic margins not palpable. MUSCULOSKELETAL: Extremities without clubbing, cyanosis, or edema. No obvious deformities. NEUROLOGICAL: Awake and alert. No obvious cranial nerve deficits. Motor grossly within normal limits. Normal speech. Results - Labs CBC & Chem 7: 06/24/18 03:47 06/24/18 03:47 Laboratory Results - last 24 hr 06/23/18 06/23/18 06/23/18 10:49 10:49 12:00 WBC RBC Hgb Hct MCV MCH MCHC RDW Plt Count MPV PT INR APTT Sodium 142 Potassium 3.4 L Chloride 110 H Carbon Dioxide 18.8 L Anion Gap 13 BUN 8 Creatinine 0.85 Estimated GFR Greater than 89 Random Glucose 103 Hemoglobin A1c Calcium 8.5 Phosphorus Magnesium Total Bilirubin 0.5 AST 16 ALT 29 Alkaline Phosphatase 46 Troponin I 0.39 H Total Protein 6.5 D Albumin 3.6 D Triglycerides 205 H Cholesterol 151 LDL Cholesterol, Calc 74 HDL Cholesterol 36.5 L Cholesterol/HDL Ratio 4.13 Acetaminophen Less than 2.0 L 06/23/18 06/23/18 06/24/18 13:50 17:00 03:47 WBC 6.0 RBC 4.70 Hgb 14.3 Hct 42.3 MCV 90.0 D MCH 30.5 MCHC 33.9 RDW 13.4 Plt Count 169 MPV 9.2 PT 12.5 H INR 1.2 APTT 27.2 Sodium Potassium Chloride Carbon Dioxide Anion Gap BUN Creatinine Estimated GFR Random Glucose Hemoglobin A1c 5.7 Calcium Phosphorus Magnesium Total Bilirubin AST ALT Alkaline Phosphatase Troponin I Total Protein Albumin Triglycerides Cholesterol LDL Cholesterol, Calc HDL Cholesterol Cholesterol/HDL Ratio Acetaminophen 06/24/18 03:47 WBC RBC Hgb Hct MCV MCH MCHC RDW Plt Count MPV PT INR APTT Sodium 144 Potassium 4.2 D Chloride 109 H Carbon Dioxide 28.0 D Anion Gap 7 BUN 9 Creatinine 0.81 Estimated GFR Greater than 89 Random Glucose 98 Hemoglobin A1c Calcium 8.4 L Phosphorus 2.7 Magnesium 2.1 Total Bilirubin AST ALT Alkaline Phosphatase Troponin I Total Protein Albumin Triglycerides Cholesterol LDL Cholesterol, Calc HDL Cholesterol Cholesterol/HDL Ratio Acetaminophen Assessment and Plan - Plan Suicide attempt/Tylenol overdose/Major depression Psychiatry consult appreciated. -S/p IV N-acetylcysteine for Tylenol overdose per protocol. -Psych will take pt once medically stable. NSTEMI Trop elevated. Has left sided chest pain, chronic. EKG without acute ischemic changes. Cardiology consult appreciated. -telemetry. -ASA 325 mg daily. -stress test results pending. Follow up with cardiology. Acute respiratory alkalosis Minimal left basilar effusion on chest x-ray. Respiratory alkalosis most likely from anxiety. -oxygen as needed. PROPH: Bilateral lower extremity SCDs Discharge Planning: Waiting for stress test results. If negative will check with cardiology if clear for discharge to psych today.
--- NOTE | 2018-06-24 15:10 | NM ---
EXAM DATE: 06/24/2018 2:35 PM EDT AGE/SEX: 48 years / Male INDICATIONS:Angina. . Left chest pain. CLINICAL DATA: This is the patient's initial encounter. Patient reports that signs and symptoms have been present for 1 day and indicates a pain score of 5/10. MEDICAL/SURGICAL HISTORY: Hypertension. Tonsillectomy. COMPARISON: No prior exams available for comparison. DOSE: 10.3 mCi Tc 99m Myoview at rest 30 mCi [id number] at stress 0.4 mg Lexiscan STRESS SYMPTOMS: Dyspnea. EJECTION FRACTION: 59 % TECHNIQUE: The patient underwent pharmacologic stress with infusion of prescribed dose. Continuous ECG tracing was monitored during stress. Gated SPECT imaging was performed after stress and conventi onal SPECT imaging was performed at rest. The examination was performed on a SPECT/CT scanner, both attenuation and non-corrected datasets were reviewed. FINDINGS: Distribution: The maximum perfused segment at stress is in the inferior lateral wall. Perfusion Study: The pattern of perfusion at stress is within normal limits. Gated Study: There are intact wall motion and wall thickening without hypokinetic or dyskinetic segm ents. The ejection fraction is calculated at 59%. RISK CATEGORY: Low (<1% Annual Motality Rate) CONCLUSION: 1. Left ventricle perfusion is within normal limits. No fixed or reversible perfusion defect is iden tified. 2. Left ventricle wall motion is within normal limits. Ejection fraction is calculated at 59%. Electronically signed by: Juan R Harris MD 06/24/2018 3:09 PM EDT
--- NOTE | 2018-06-24 17:16 | P.DS ---
Date of admission: 06/22/18 22:00 Primary care physician: UNKNOWN Brief History from admission: Patient is 48-year-old male with no significant past medical history, who attempted to kill himself by taking 25 tablets of Tylenol 500 mg, large amount of Advil and Midol(contains Tylenol). As per patient he took about 100 tablets total. He was taken to the [place] emergency department. Further evaluation showed a Tylenol level of 110.5, salicylate level was normal his ABG showed a pH of 7.63 PCO2 13, base excess was -7. Poison control was contacted and patient was started on IV Mucomyst per protocol for Tylenol toxicity. I evaluated the patient in the ICU. He states that he feels depressed because he is going through a divorce. He had lost approximately 60 pounds due to stress in the last 2 months. While he was 15 his father killed himself and at that time he had attempted to commit suicide. He has no other medical problems DS: Diagnosis - Discharge Diagnosis (1) Tylenol overdose Status: Acute DS: Medications - Discharge Medications Prescriptions: amlodipine [Norvasc] 5 mg PO DAILY #30 tab aspirin [Adult Low Dose Aspirin] 81 mg PO DAILY #30 tab DS: Summary Hospital Course: Suicide attempt/Tylenol overdose/Major depression Poison control was contacted. Psychiatry was consulted. S/p IV N-acetylcysteine protocol. The pt will be discharged to psychiatry at this time as he is medically stable and clear for discharge. NSTEMI Trop elevated. Has left sided chest pain, chronic. EKG without acute ischemic changes. Cardiology was consulted. He was monitored on telemetry. He was started on ASA 325 mg daily. Stress test was negative. He will continue ASA 81 mg daily. Acute respiratory alkalosis Minimal left basilar effusion on chest x-ray. He received oxygen and nebs as needed. Resolved. - Time Spent with Patient Total time spent providing and/or coordinating discharge services: Less than 30 minutes - Quality: VTE Deep Vein Thrombosis/Pulmonary Embolism Present on Admission: No Exam Vital signs: Vital Signs 06/23/18 18:00 06/23/18 20:00 06/23/18 22:00 Temperature 98.6 F Pulse Rate 82 67 65 Respiratory Rate 18 Blood Pressure 140/83 Pulse Oximetry 98 06/24/18 00:00 06/24/18 02:00 06/24/18 04:00 Temperature 98.4 F 98.6 F Pulse Rate 57 L 71 61 Respiratory Rate 25 H 17 Blood Pressure 123/68 138/78 Pulse Oximetry 97 97 06/24/18 06:00 06/24/18 08:00 06/24/18 10:00 Temperature Pulse Rate 67 67 61 Respiratory Rate Blood Pressure Pulse Oximetry 06/24/18 12:00 Temperature Pulse Rate 60 Respiratory Rate Blood Pressure Pulse Oximetry Intake & Output 06/23/18 06/24/18 06/24/18 18:59 06:59 18:59 Intake Total 2950 / 2950 1450 / 1450 1350 / 1350 Output Total 500 / 500 825 / 825 Balance 2450 / 2450 625 / 625 1350 / 1350 Weight 109 kg Intake: IV 2050 / 2050 1000 / 1000 1350 / 1350 NS Inj 1,000 ML @ 84 mls/hr IV. 1000 / 1000 1000 / 1000 1350 / 1350 CONT .[id number] BIJAL Rx#:[id number] Acetadote Inj 10,000 MG In D5W 1050 / 1050 Inj 1,000 ML @ 65.625 mls/hr IV .SIG ONCE ONE Rx#:[id number] Oral 900 / 900 450 / 450 Output: Urine 500 / 500 825 / 825 Other: # Voids 1 2 # Bowel Movements 0 Narrative: GENERAL: comfortable appearing SKIN: Warm and dry. HEAD: Atraumatic. Normocephalic. EYES: Pupils equal and round. No scleral icterus. No injection or drainage. ENT: No nasal bleeding or discharge. Mucous membranes pink and moist. NECK: Trachea midline. No JVD. CARDIOVASCULAR: Regular rate and rhythm. RESPIRATORY: No accessory muscle use. Clear to auscultation. Breath sounds equal bilaterally. GASTROINTESTINAL: Abdomen soft, non-tender, nondistended. Hepatic and splenic margins not palpable. MUSCULOSKELETAL: Extremities without clubbing, cyanosis, or edema. No obvious deformities. NEUROLOGICAL: Awake and alert. No obvious cranial nerve deficits. Motor grossly within normal limits. Normal speech. Results Procedures completed during hospitalization: None Labs on day of discharge: Labs from last 24 hours 06/24/18 06/24/18 06/23/18 03:47 03:47 17:00 WBC 6.0 RBC 4.70 Hgb 14.3 Hct 42.3 MCV 90.0 D MCH 30.5 MCHC 33.9 RDW 13.4 Plt Count 169 MPV 9.2 PT 12.5 H INR 1.2 APTT 27.2 Sodium 144 Potassium 4.2 D Chloride 109 H Carbon Dioxide 28.0 D Anion Gap 7 BUN 9 Creatinine 0.81 Estimated GFR Greater than 89 Random Glucose 98 Hemoglobin A1c Calcium 8.4 L Phosphorus 2.7 Magnesium 2.1 Total Bilirubin AST ALT Alkaline Phosphatase Total Protein Albumin 06/23/18 06/23/18 13:50 10:49 WBC RBC Hgb Hct MCV MCH MCHC RDW Plt Count MPV PT INR APTT Sodium 142 Potassium 3.4 L Chloride 110 H Carbon Dioxide 18.8 L Anion Gap 13 BUN 8 Creatinine 0.85 Estimated GFR Greater than 89 Random Glucose 103 Hemoglobin A1c 5.7 Calcium 8.5 Phosphorus Magnesium Total Bilirubin 0.5 AST 16 ALT 29 Alkaline Phosphatase 46 Total Protein 6.5 D Albumin 3.6 D - Impressions ITS Impressions Myocardial Perfusion Scan Nuc Med 06/24/18 00:00 CONCLUSION: 1. Left ventricle perfusion is within normal limits. No fixed or reversible perfusion defect is identified. 2. Left ventricle wall motion is within normal limits. Ejection fraction is calculated at 59%. Discharge Plan - Discharge Disposition Patient Disposition: 65 Disc To Psych Care Facility - Discharge Condition Condition: Stable - Discharge Order Discharge Orders: Discharge Order (Routine); Ordered 06/24/18 Ordered By: Yang Alfred - Discharge Details Anticipated Discharge Date: 06/24/18 Discharge Comment: D/c to psych - Physicians Team Primary Care Provider: LUIS MIGUEL, Attending Provider: Yang Alfred Other Providers: Chacorta Linda MD ; Sherwin Green, - Rxs /Orders / Referrals /Forms Prescriptions: New amlodipine [Norvasc] 5 mg Tablet 5 mg PO DAILY Qty: 30 RF: 0 aspirin [Adult Low Dose Aspirin] 81 mg Tablet,Delayed Release (Dr/Ec) 81 mg PO DAILY Qty: 30 RF: 0 No Action No Known Home Medications Referrals: UNKNOWN, [Primary Care Provider] - See Instructions (1 week)
== END 2018-06-24 19:30 ==
LOC: NEDDLT 21:50 → HIMC 22:00
PROVIDERS: ADMIT Internal Medicine; ATTEND Internal Medicine

== ENCOUNTER 2018-06-24 19:34 | Inpatient (IN) ==
[2018-06-24] MEDS ORDERED: Acetaminophen 325 MG Tablet PO PRN (19:52)
[2018-06-24] MEDS ORDERED: Aluminum/Magnesium/Simethacone Susp 30 ML UDC PO PRN (19:52)
[2018-06-24] MEDS ORDERED: Melatonin 5 MG Tablet PO PRN (21:00)
[2018-06-25] MEDS: amLODIPine 5 MG Tablet PO SCH (08:46)
[2018-06-25] MEDS ORDERED: Aspirin 325 MG Tablet PO SCH (09:00)
[2018-06-25 09:30] LABS: Anion Gap 9 meq/L (5-15); Blood Urea Nitrogen 10 mg/dL (7-18); Calcium 9.1 mg/dL (8.5-10.1); Carbon Dioxide 25.5 meq/L (21.0-32.0); Chloride 105 meq/L (98-107); Glomerular Filtration Rate Greater Than 89 mL/min (>89); Glucose,Random 159 mg/dL (74-106); Potassium 3.5 meq/L (3.5-5.1); Sodium 139 meq/L (136-145)
[2018-06-25 09:31] LABS: Cholesterol 150 mg/dL (120-200)
[2018-06-25 09:34] LABS: Chol/HDL Ratio 3.61 Ratio; HDL Cholesterol 41.5 mg/dL (40.0-60.0); LDL Cholesterol,Calculated 70 mg/dL (0-99); Triglycerides 193 mg/dL (42-150)
[2018-06-25 13:23] LABS: Hemoglobin A1c 5.7 % (4.3-6.0)
--- NOTE | 2018-06-25 16:00 | P.HPPSY ---
Provisional Diagnosis Admission Date: June 24, 2018 19:43 Competence Certification of Person's Competence To Provide Express and Informed Consent I have personally examined Fred Owens II, a person being served at [facility] on, June 25, 2018 1556. Express and informed consent means consent voluntarily given in writing, by a competent person, after sufficient explanation and disclosure of the subject matter involved to enable the person to make a knowing and willful decision without any element of force, fraud, deceit, duress, or other form of constraint or coercion. This person is 18 years of age or older, is not now known to be incompetent to consent to treatment with a guardian advocate, and does not have a health care surrogate or proxy currently making medical treatment decisions. I have found this person to be one of the following: [X] Competent to provide express and informed consent, as defined above, for voluntary admission to this facility and is competent to provide express and informed consent for treatment. He/she has the consistent capacity to make well reasoned, willful, and knowing decisions concerning his or her medical or mental health treatment. The person fully and consistently understands the purpose of the admission for examination/placement and is fully capable of personally exercising all rights assured under [place] Incompetent to provide express and informed consent to voluntary admission, and this is incompetent to provide express and informed consent to treatment. The person must be transferred to involuntary status and a petition for a guardian advocate filed with the Circuit Court. [] Refusing to provide express and informed consent to voluntary admission but is competent to provide express and informed consent for treatment. The person must be discharged or transferred to involuntary status. Form shall be completed within 24 hours of a person's arrival at the receiving facility and filed in the clinical record of each person: 1. Admitted on a voluntary basis 2. Permitted to provide express and informed consent to his/her own treatment 3. Allowed to transfer from involuntary to voluntary status 4. Prior to permitting a person to consent to his or her own treatment after having been previously found incompetent to consent to treatment. History of Present Illness Capacity: Has capacity Chief Complaint: suicide attempt History of Present Illness: Patient is a 48-year-old male who was living with his in [place] and 3 kids. Patient is admitted to the psychiatric unit for a suicide attempt where he took 5 handful of medications, roughly 130 pills. Patient says he has been depressed over the past couple months secondary to a very specific stressor. He had been having tension with his and going to counseling. Patient felt he had hoped to save the relationship and then subsequently spoke with her mother and his daughter who confirmed that the was planning on leaving him and taking custody. Patient says he became a upset and impulsively overdosed on the medication. Today, patient cheerful and excited. He claims that once he found out that there is no hope he feels liberated and will pursue other interests in women. He is no longer tearful. PPHx: Patient has a suicidal attempt at the age of [age] years old after his father committed suicide, but no hospitalizations, no diagnosis, never been on medication PMHx: No significant medical history Substance Hx: The patient reports occasional use of alcohol Family Hx: His father committed suicide, he had diagnosis of PTSD Social Hx: Patient was born and raised in [place], domiciled with in [place], father of 3 kids, employed, - Inpatient Certification I certify that the inpatient services were ordered in accordance with Medicare regulations governing the order. This includes certification that hospital inpatient services are reasonable and necessary and in the case of services not specified as inpatient-only under 42 CFR 419.22(n), that they are appropriately provided as inpatient services in accordance to with the 2-midnight benchmark under 43 CFR 412.3(e) I certify that inpatient psychiatric hospital services are medically necessary. Evaluation and treatment and/or diagnostic testing are expected to improve the patient's condition. The patient needs on a daily basis, active treatment furnished directly by or requiring the supervision of inpatient psychiatric facility personnel. Estimated Total Length of Stay (Days): 7 Plans for Post Hospital Care: Not yet determined PMFSH - History History Provided By: Patient - Medical History Medical History: Medical History (Last Reviewed 06/25/18 @ 15:59 by Jose Alejandro Balderas DO) Depression Patient denies medical problems - Surgical History Surgical History: Surgical History (Last Reviewed 06/25/18 @ 15:59 by Jose Alejandro Balderas DO) Hx of tonsillectomy - Tobacco History Second Hand Smoke Exposure: Yes Tobacco Use In Past 30 Days: Yes Smoking Status: Current every day smoker Tobacco Type: E-Cigarettes - Alcohol History How Often Do You Have a Drink Containing Alcohol: Monthly or less - Substance Use History Substance History: No History of Abuse - Immunization History Tetanus Immunization: >5 Years Hx Influenza Vaccine This Season: No Medications and Allergies Active Medications: Active Medications Acetaminophen (Tylenol) 650 mg PO Q4H PRN PRN Reason: Pain 1-5 or Temp >101F Al Hydrox/Mg Hydrox/Simethicone (Mag-Al Plus Susp Liq) 30 ml PO Q6H PRN PRN Reason: DYSPEPSIA Al Hydroxide/Mg Hydroxide (Milk Of Magnesia Liq) 30 ml PO Q12H PRN PRN Reason: Mild Constipation Amlodipine Besylate (Norvasc) 5 mg PO DAILY [facility] Last Admin: 06/25/18 08:46 Dose: 5 mg Aspirin (Aspirin) 325 mg PO DAILY [facility] Last Admin: 06/25/18 09:17 Dose: 325 mg Melatonin (Melatonin) 5 mg PO HS PRN PRN Reason: INSOMNIA Last Admin: 06/25/18 00:51 Dose: 5 mg Allergies Allergy/AdvReac Type Severity Reaction Status Date / Time Penicillins Allergy Itching Verified 06/22/18 14:39 Home Medications Medication Instructions Recorded Confirmed Type No Known Home Medications 06/22/18 06/22/18 History Results - Labs CBC & Chem 7: 06/25/18 08:20 Labs: Laboratory Results - last 24 hr 06/25/18 06/25/18 08:20 08:20 Sodium 139 Potassium 3.5 Chloride 105 Carbon Dioxide 25.5 Anion Gap 9 BUN 10 Creatinine 0.87 Estimated GFR Greater than 89 Random Glucose 159 H Hemoglobin A1c 5.7 Calcium 9.1 Triglycerides 193 H Cholesterol 150 LDL Cholesterol, Calc 70 HDL Cholesterol 41.5 Cholesterol/HDL Ratio 3.61 Exam Vital signs: Vital Signs 06/24/18 20:00 06/25/18 05:46 Temperature 97.7 F 98.1 F Pulse Rate 74 76 Respiratory Rate 16 18 Blood Pressure 139/82 146/78 H Pulse Oximetry 96 97 Intake & Output 06/24/18 06/25/18 06/25/18 18:59 06:59 18:59 Weight 109.9 kg Other: Weight On Admission 109.9 kg Mental Status Examination Appearance: Appropriate Consciousness: Alert Orientation: x4 Motor Activity: Normal gait Speech: Unremarkable Language: Adequate Fund of Knowledge: Adequate Attention and Concentration: Adequate Memory: Unremarkable Mood: Appropriate Affect: Appropriate Thought Process & Associations: Intact Thought Content: Appropriate Hallucination Type: None Delusion Type: None Suicidal Ideation: No Suicidal Plan: No Suicidal Intention: No Homicidal Ideation: No Homicidal Plan: No Homicidal Intention: No Insight: Fair Judgment: Impulsive Assessment and Plan - Assessment (1) Acute adjustment disorder Code(s): F43.20 - Adjustment disorder, unspecified Status: Acute - Plan Plan: Despite psychoeducation patient refuses an antidepressant medication. He may sign voluntary Justification for Continued Inpatient Stay: Patient would decompensate in a less restrictive setting
--- NOTE | 2018-06-25 18:03 | P.CON ---
History of Present Illness Service: [facility]/HEP Consult date: 06/24/18 Requesting Physician: Maurice Camacho Reason for Consult: Continue to follow from medical floor Primary Care Provider: UNKNOWN Chief Complaint: "I was in a bad place" History of Present Illness: 48-year-old male with past medical history significant for prediabetes , hypertension who presented to the emergency department on 06/22 after suicide attempt by taking 25 tablets of Tylenol, large amounts of Advil and Midol. Patient was originally taken to [facility] ED with Tylenol level of 100.5, salicylate level normal with ABG showed a pH of 7.63 PCO2 13, base excess was - 7. Poison control was contacted and patient started on IV Mucomyst. He was transferred to [facility] and admitted to ICU. Tylenol level improved to less than 2.0. During patient's hospitalization he also complained of chest pain. Troponins returned back positive, EKG with no ST changes. Cardiology services were consulted and patient was started on aspirin, Norvasc and recommendations for Lexiscan. She underwent Lexiscan on 06/24 with EF noted at 59% with low annual mortality rate noted. Patient was cleared medically and discharged to inpatient psychiatry unit. [facility] consulted to follow patient after hospitalization. Patient is seen and examined in his room and appears to be in no acute distress. He denies any shortness of breath, cough, fevers, chills, nausea, vomiting, diarrhea, chest pain or palpitations. He reports that he is feeling well and understands why he attempted what he did. 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 He also finds comfort in the fact that he understands he will not be losing his children. His only physical complaint is of constipation, reports that he was getting stool softeners but has yet to have a bowel movement. He denies any abdominal pain or discomfort, positive flatus. Review of Systems All other systems reviewed negative except as stated in HPI PMFSH - History History Provided By: Patient - Medical History Medical History: Medical History (Last Updated 06/25/18 @ 17:57 by Dori Jernigan) HTN (hypertension) Depression Patient denies medical problems - Surgical History Surgical History: Surgical History (Last Reviewed 06/25/18 @ 17:57 by Dori Jernigan) Hx of tonsillectomy - Family History Family History: Family History (Last Updated 06/25/18 @ 17:57 by Dori Jernigan) Mother Intestinal obstruction - Social History I have reviewed the patient's Social History: Yes - Tobacco History Second Hand Smoke Exposure: Yes Tobacco Use In Past 30 Days: Yes Smoking Status: Current every day smoker Tobacco Type: E-Cigarettes - Alcohol History How Often Do You Have a Drink Containing Alcohol: Monthly or less - Substance Use History Substance History: No History of Abuse - Immunization History Tetanus Immunization: >5 Years Hx Influenza Vaccine This Season: No Medications and Allergies Active Medications: Active Medications Acetaminophen (Tylenol) 650 mg PO Q4H PRN PRN Reason: Pain 1-5 or Temp >101F Al Hydrox/Mg Hydrox/Simethicone (Mag-Al Plus Susp Liq) 30 ml PO Q6H PRN PRN Reason: DYSPEPSIA Al Hydroxide/Mg Hydroxide (Milk Of Magnesia Liq) 30 ml PO Q12H PRN PRN Reason: Mild Constipation Amlodipine Besylate (Norvasc) 5 mg PO DAILY [facility] Last Admin: 06/25/18 08:46 Dose: 5 mg Aspirin (Aspirin) 325 mg PO DAILY [facility] Last Admin: 06/25/18 09:17 Dose: 325 mg Lactulose (Lactulose Liq) 30 ml PO DAILY PRN PRN Reason: SEVERE CONSITIPATION Melatonin (Melatonin) 5 mg PO HS PRN PRN Reason: INSOMNIA Last Admin: 06/25/18 00:51 Dose: 5 mg Allergies Allergy/AdvReac Type Severity Reaction Status Date / Time Penicillins Allergy Itching Verified 06/22/18 14:39 Home Medications Medication Instructions Recorded Confirmed Type No Known Home Medications 06/22/18 06/22/18 History Physical Exam Vital signs: Vital Signs 06/24/18 20:00 06/25/18 05:46 06/25/18 17:13 Temperature 97.7 F 98.1 F 98.1 F Pulse Rate 74 76 73 Respiratory Rate 16 18 18 Blood Pressure 139/82 146/78 H 141/86 H Pulse Oximetry 96 97 98 Intake & Output 06/24/18 06/25/18 06/25/18 18:59 06:59 18:59 Weight 109.9 kg Other: Weight On Admission 109.9 kg Narrative: GENERAL: Well-developed, well-nourished male in no acute distress. SKIN: Warm and dry. HEAD: Atraumatic. Normocephalic. EYES: Pupils equal and round. No scleral icterus. No injection or drainage. ENT: No nasal bleeding or discharge. Mucous membranes pink and moist. NECK: Trachea midline. No JVD. CARDIOVASCULAR: Regular rate and rhythm. RESPIRATORY: No accessory muscle use. Clear to auscultation. Breath sounds equal bilaterally. GASTROINTESTINAL: Abdomen soft, non-tender, nondistended. + Bowel sounds MUSCULOSKELETAL: Extremities without clubbing, cyanosis, or edema. No obvious deformities. NEUROLOGICAL: Awake, alert, oriented x3. No obvious cranial nerve deficits. Motor grossly within normal limits. Five out of 5 muscle strength in the arms and legs. Normal speech. PSYCHIATRIC: Appropriate mood and affect; insight and judgment normal. Assessment and Plan - Plan 48-year-old male with past medical history significant for prediabetes , hypertension who presented to the emergency department on 06/22 after suicide attempt by taking 25 tablets of Tylenol, large amounts of Advil and Midol. Patient was originally taken to [facility] ED with Tylenol level of 100.5, salicylate level normal with ABG showed a pH of 7.63 PCO2 13, base excess was - 7. Poison control was contacted and patient started on IV Mucomyst. He was transferred to [facility] and admitted to ICU. Tylenol level improved to less than 2.0. During patient's hospitalization he also complained of chest pain. Troponins returned back positive, EKG with no ST changes. Cardiology services were consulted and patient was started on aspirin, Norvasc and recommendations for Lexiscan. She underwent Lexiscan on 06/24 with EF noted at 59% with low annual mortality rate noted. Patient was cleared medically and discharged to inpatient psychiatry unit. [facility] consulted to follow patient after hospitalization. Suicide attempt Tylenol overdose -Poison control contacted, treated per protocol with IV Mucomyst with latest Tylenol levels less than 0.2 -Treatment plan per psychiatry, greatly appreciate Atypical chest pain -Patient seen and evaluated by cardiology services, Lexiscan negative. -We will continue Norvasc 5 mg daily as well as low-dose aspirin Prediabetes, hemoglobin A1c 5.7 -Patient reports he is made dietary and lifestyle changes as well as weight loss -Recommend continuing these, if needed can follow-up with primary care physician to start metformin Constipation -PRN milk of magnesia as well as lactulose DVT prophylaxisambulation Thank you for this consultation, will continue to follow along. Discussed Condition With: Patient and RN
[2018-06-26] MEDS: amLODIPine 5 MG Tablet PO SCH (08:20)
--- NOTE | 2018-06-26 12:12 | P.PNPSY ---
Subjective Chief Complaint: suicide attempt Remarks: Reviewed electronic medical records and discussed case with staff. Follow-up was conducted in the [facility] with CHANTAL Mason present. Patient endorses that he is not feeling suicidal. He states that he has had marriage problems that have become complicated over the past two years. Prior to this admission, his did not want to move forward. He has spoken to his and she is in agreement with a divorce. Patient feels that he has alot of support from his children and family. He is anxious to return to work. States that he is eating and sleeping well. He feels that the time in the hospital has given him time to "clear his head." Review of Systems All other systems reviewed negative except as stated in HPI Mental Status Examination Appearance: Appropriate Consciousness: Alert Orientation: x4 Motor Activity: Normal gait Speech: Unremarkable Language: Adequate Fund of Knowledge: Adequate Attention and Concentration: Adequate Memory: Unremarkable Mood: Appropriate Affect: Appropriate Thought Process & Associations: Intact Thought Content: Appropriate Hallucination Type: None Delusion Type: None Suicidal Ideation: No Suicidal Plan: No Suicidal Intention: No Homicidal Ideation: No Homicidal Plan: No Homicidal Intention: No Insight: Fair Judgment: Impulsive Assessment and Plan - Assessment (1) Tylenol overdose Code(s): T39.1X1A - Poisoning by 4-Aminophenol derivatives, accidental ( unintentional), initial encounter Status: Acute (2) Acute adjustment disorder Code(s): F43.20 - Adjustment disorder, unspecified Status: Acute - Plan Plan: Continue current treatment plan. Justification for Continued Inpatient Stay: Moving patient to a less restrictive environment may result in his decompensation.
[2018-06-26] MEDS ORDERED: amLODIPine 5 MG Tablet PO SCH (14:57)
--- NOTE | 2018-06-26 14:58 | P.PN ---
Subjective Interval history: Follow-up visit for Tylenol overdose and constipation. Patient seen and examined in the day room in no acute distress. He reports he did manage to have a mild yesterday although he does endorse ongoing constipation. He is requesting additional laxatives. Denies any nausea, vomiting, cough, shortness of breath or chest pain. He voices no other acute concerns or complaints at the moment. Physical Exam Vital signs: Vital Signs 06/25/18 17:13 06/26/18 06:20 Temperature 98.1 F 98.0 F Pulse Rate 73 71 Respiratory Rate 18 18 Blood Pressure 141/86 H 146/83 H Pulse Oximetry 98 97 Narrative: GENERAL: Well-developed, well-nourished male in no acute distress. SKIN: Warm and dry. HEAD: Atraumatic. Normocephalic. EYES: No scleral icterus. No injection or drainage. ENT: No nasal bleeding or discharge. Mucous membranes pink and moist. NECK: Trachea midline. CARDIOVASCULAR: Regular rate and rhythm. RESPIRATORY: No accessory muscle use. MUSCULOSKELETAL: Extremities without clubbing, cyanosis, or edema. No obvious deformities. NEUROLOGICAL: Awake, alert, oriented x3. No obvious cranial nerve deficits. Motor grossly within normal limits. Normal speech. PSYCHIATRIC: Appropriate mood and affect; insight and judgment normal. Results - Labs CBC & Chem 7: 06/25/18 08:20 Assessment and Plan - Plan 48-year-old male with past medical history significant for prediabetes , hypertension who presented to the emergency department on 06/22 after suicide attempt by taking 25 tablets of Tylenol, large amounts of Advil and Midol. Patient was originally taken to [facility] ED with Tylenol level of 100.5, salicylate level normal with ABG showed a pH of 7.63 PCO2 13, base excess was - 7. Poison control was contacted and patient started on IV Mucomyst. He was transferred to [facility] and admitted to ICU. Tylenol level improved to less than 2.0. During patient's hospitalization he also complained of chest pain. Troponins returned back positive, EKG with no ST changes. Cardiology services were consulted and patient was started on aspirin, Norvasc and recommendations for Lexiscan. She underwent Lexiscan on 06/24 with EF noted at 59% with low annual mortality rate noted. Patient was cleared medically and discharged to inpatient psychiatry unit. [facility] consulted to follow patient after hospitalization. Suicide attempt Tylenol overdose -Poison control contacted, treated per protocol with IV Mucomyst with latest Tylenol levels less than 0.2 -Treatment plan per psychiatry, greatly appreciate Atypical chest pain -Patient seen and evaluated by cardiology services, Lexiscan negative. -BP slightly elevated, increase Norvasc to 10 mg daily, continue monitoring BP. -Continue low-dose aspirin Prediabetes, hemoglobin A1c 5.7 -Patient reports he is made dietary and lifestyle changes as well as weight loss -Recommend continuing these, if needed can follow-up with primary care physician to start metformin Constipation -PRN milk of magnesia as well as lactulose -+ BM yesterday, encourage additional laxatives for better relief today. DVT prophylaxisambulation Will follow BP in the next day or so and if stable likely sign off. Discussed Condition With: Patient and RN
--- NOTE | 2018-06-27 12:28 | P.PNADD ---
Addendum to Inpatient Note Reason for Addendum: Additional Documentation Additional information: BP stable on Norvasc, nurse does not report any acute concerns. [facility] will sign off, please reconsult if needed.
--- NOTE | 2018-06-27 14:22 | P.DSPSY ---
Psychiatry Discharge Summary Inpatient Psychiatric care?: Yes Advance Directives: No Mental Health Advance Directive: No Health Care Proxy: No - Admission Admission Date: June 24, 2018 19:43 - Admission Diagnosis (1) Adjustment disorder with mixed disturbance of emotions and conduct Code(s): F43.25 - Adjustment disorder with mixed disturbance of emotions and conduct (2) Tylenol overdose Code(s): T39.1X1A - Poisoning by 4-Aminophenol derivatives, accidental ( unintentional), initial encounter Brief History: Patient is a 48-year-old male who was living with his in [place] and 3 kids. Patient is admitted to the psychiatric unit for a suicide attempt where he took 5 handful of medications, roughly 130 pills. Patient says he has been depressed over the past couple months secondary to a very specific stressor. He had been having tension with his and going to counseling. Patient felt he had hoped to save the relationship and then subsequently spoke with her mother and his daughter who confirmed that the was planning on leaving him and taking custody. Patient says he became a upset and impulsively overdosed on the medication. Today, patient cheerful and excited. He claims that once he found out that there is no hope he feels liberated and will pursue other interests in women. He is no longer tearful. PPHx: Patient has a suicidal attempt at the age of [age] years old after his father committed suicide, but no hospitalizations, no diagnosis, never been on medication PMHx: No significant medical history Substance Hx: The patient reports occasional use of alcohol Family Hx: His father committed suicide, he had diagnosis of PTSD Social Hx: Patient was born and raised in [place], domiciled with in [place], father of 3 kids, employed, Tobacco Use In Past 30 Days: Yes How Often Do You Have a Drink Containing Alcohol: Monthly or less Hospital Course: Room with nurse Malia, chart reviewed, patient calm cooperative acknowledging the impulsivity of his behavior. Stating he is come to terms with the impending divorce precipitated by his . He also states his suffers from bipolar disorder. He has had good communication with his children. He does have counseling set up on a weekly basis of the community. And he is made appropriate legal decisions related to the divorce. At this time I feel patient longer meets criteria for inpatient psychiatric hospitalization. He is able to contract to do no harm. He is not planning and taking his children and adopting a rescue dog. Thus patient will be discharged today to himself follow- up with his individual counselor in the community there will be no Rx by me - Discharge Discharge Date: 06/27/18 - Discharge Diagnosis (1) Adjustment disorder with mixed disturbance of emotions and conduct Code(s): F43.25 - Adjustment disorder with mixed disturbance of emotions and conduct Status: Acute (2) Tylenol overdose Code(s): T39.1X1A - Poisoning by 4-Aminophenol derivatives, accidental ( unintentional), initial encounter Status: Acute Discharge Disposition: Home - Discharge Instructions Discharge Diet: Regular Diet Activities You Can Perform: Regular- No Restrictions - Discharge Time > 30 minutes Mental Status Examination Appearance: Appropriate Consciousness: Alert Orientation: x4 Motor Activity: Normal gait Speech: Unremarkable Language: Adequate Fund of Knowledge: Adequate Attention and Concentration: Adequate Memory: Unremarkable Mood: Appropriate Affect: Appropriate Thought Process & Associations: Intact Thought Content: Appropriate Hallucination Type: None Delusion Type: None Suicidal Ideation: No Suicidal Plan: No Suicidal Intention: No Homicidal Ideation: No Homicidal Plan: No Homicidal Intention: No Insight: Fair Judgment: Impulsive Discharge/Advance Care Plan - Results Vital Signs: Last Vital Signs Temp 98.3 F 06/27/18 05:17 Pulse 68 06/27/18 05:17 Resp 16 06/27/18 05:17 BP 138/74 06/27/18 05:17 Pulse Ox 97 06/27/18 05:17 Lab Results: Laboratory Results Hemoglobin A1c 5.7 % (4.3-6.0) 06/25/18 08:20 Triglycerides 193 mg/dL (42-150) H 06/25/18 08:20 Cholesterol 150 mg/dL (120-200) 06/25/18 08:20 LDL Cholesterol, Calc 70 mg/dL (0-99) 06/25/18 08:20 HDL Cholesterol 41.5 mg/dL (40.0-60.0) 06/25/18 08:20 Summary of Procedures: None done Pending Results: None - Medications Number of antipsychotic medications at discharge: 0 - Discharge Care Plan Goals to Promote Your Health: * To prevent worsening of your condition and complications * To maintain your health at the optimal level Directions to Meet Your Goals: Take your medications as prescribed Follow your dietary instruction Follow activity as directed Keep your appointments as scheduled Take your immunizations and boosters as scheduled If your symptoms worsen call your PCP, if no PCP go to Urgent Care Center or Emergency Room For 15/03 questions related to your inpatient stay or results of tests pending at discharge, please contact Dr. Juan R Maynard MD at Smoking is Dangerous to Your Health. Avoid second hand smoking
== END 2018-06-27 16:15 | disposition home or self-care (01) ==
LOC: H260 19:43
PROVIDERS: ADMIT Psychiatry & Neurology Psychiatry; ATTEND Psychiatry & Neurology Psychiatry